=== PATIENT | male | born 1950 | race Caucasian/White ===

== ENCOUNTER → 2021-01-29 10:09 | Outpatient (CLI) | payer MEDICARE, SELFPAY ==
--- NOTE | ~2021-01-29 | XR_ITS ---
XR hip RT min 2V DATE: 01/29/2021 10:34 INDICATION: Right hip pain for 3 months. No injury. TECHNIQUE: AP and lateral views COMPARISON: None FINDINGS: There is joint space narrowing and prominent spurring consistent with severe right hip oste oarthritis. No fracture, dislocation or bone destruction is evident. IMPRESSION: Severe right hip osteoarthritis Reviewed, dictated and finalized at location A.
== END ==
PROVIDERS: PCP Internal Medicine; Visit Provider Nurse Practitioner
DX: M25.551 Pain in right hip (principal); M16.11 Unilateral primary osteoarthritis, right hip
CPT/HCPCS: 73502

== ENCOUNTER 2023-06-08 00:24 | Day surgery (SDC) | payer MEDICARE, SELFPAY ==
[2023-05-13 13:20] VITALS: BMI 29.5
[2023-06-08 10:29] VITALS: BP 158/85; PULSE 81; RESP 20; TEMP 36.5; O2SAT 99; BMI 29.7
[2023-06-08] MEDS: LACTATED RINGERS 1,000 ML 150 ML IV CONT (10:36)
[2023-06-08 10:37] LABS: Glucose Point of Care 109 mg/dl (65-105)
--- NOTE | 2023-06-08 11:06 | WPDANESEPPF ---
Anes - Initial Pre Proc Eval Procedure: Operation Date: 06/08/23 11:30 Proposed Procedures p Colonoscopy - Carlos De Leon MD Date/Time: 06/08/23 11:06 Surgeon: Carlos De Leon MD Pre Op Diagnosis: Family history of malignant neoplasm of digestive Patient Data Age: 72 Gender: M Height: 1.88 m Weight: 105.2 kg Last Vital Signs Temp 97.7 F 06/08/23 10:29 Pulse 81 06/08/23 10:29 Resp 20 06/08/23 10:29 BP 158/85 H 06/08/23 10:29 Pulse Ox 99 06/08/23 10:29 O2 Del Method Room Air 06/08/23 10:29 Allergies Allergy/AdvReac Type Severity Reaction Status Date / Time Penicillins Allergy Unknown feet Verified 06/08/23 10:22 swelling Home Medications Medication Instructions Recorded Confirmed Type multivitamin 1 tablet PO DAILY 02/19/21 05/13/23 History ezetimibe 10 mg tablet (Zetia) 10 mg PO DAILY #90 tabs 04/22/23 05/13/23 Rx alprazolam 0.25 mg tablet 0.25 mg PO TID PRN anxiety #90 tabs 04/28/23 05/13/23 Rx losartan 100 mg tablet 100 mg PO DAILY #90 tabs 04/28/23 05/13/23 Rx metformin 1,000 mg tablet 1,000 mg PO DAILY #90 tabs 04/28/23 05/13/23 Rx rosuvastatin 20 mg tablet (Crestor) 20 mg PO DAILY #90 tabs 04/28/23 05/13/23 Rx Laboratory Tests 06/08/23 10:35 POC Capillary Glucose 109 H mg/dl (65-105) Patient hx anesthesia problems: none Family hx anesthesia problems: none Results Review: All pre-operative results and documents have been reviewed as part of the pre-operative evaluation. [facility] Past Medical History Medical History COVID-19 Disorder of carbohydrate transport Hyperlipidemia Plantar fasciitis, bilateral Rheumatic fever Screening for malignant neoplasm Family History Family History Father Carcinoma of colon Mother Family history of lung cancer Social History Social History Smoking packs per day: 1 Smoking cigarettes per day: 20.0 Years smoked: 10 Smoking pack-years: 10.00 Smoking status: Former smoker Tobacco type: cigarettes Second hand tobacco smoke exposure: No Smoking end date: 04/26/89 Alcohol intake: current Drinks per week: 30 Substance use: never Substance use type: does not use Lack of Transportation: No Lack of Food: Never True Current Housing: I Have Housing Concerned About Future Housing: No Difficulty Paying Gas/Electric Bills: No Difficulty Paying for Meds: No Education: Associate Degree Difficulty w/ Childcare or Family Care: No Living arrangements: with family Gender identity (if verbalized by the patient): Male Spiritual care concerns: No Anes - Eval Final PreProcedure Day of Procedure 06/08/23 11:06 Patient weight: obese Heart: regular rate and rhythm Lungs: clear to auscultation Airway: Mallampati scale class II Neurological: alert and oriented Last oral intake: >/= 8 hours ASA classification: III Emergent: no Anesthetic plan: proceed Anesthesia type and monitoring: general GIVS and standard monitoring Results Review: All pre-operative results and documents have been reviewed as part of the pre-operative evaluation. Informed Consent: The patient's anesthetic plan and its attendant risks and benefits were discussed with the patient/family/POA. Questions were solicited and answers provided to the satisfaction of the patient/family/POA.
--- NOTE | 2023-06-08 11:28 | PM.HPGS ---
History of Present Illness History of Present Illness Consent: Risks, benefits, and alternatives have been discussed and questions answered. Patient agrees to proceed with procedure. Chief complaint: Family history of malignant neoplasm of digestive Narrative: Rodriguez Lawrence is a 72 year old male with last colonoscopy 2017, father had colon cancer Review of Systems Constitutional: Constitutional: Denies headache(s) and Denies weakness Eyes: Eyes: Denies blurry vision ENT: Reports Normal hearing present, Denies headache(s) and Denies neck pain Cardiovascular: Cardiovascular: Denies chest pain and Denies dyspnea Respiratory: Respiratory: Denies dyspnea Gastrointestinal: Gastrointestinal: Reports no additional gastrointestinal complaints Genitourinary: Genitourinary: Denies dysuria Musculoskeletal: Musculoskeletal: Denies neck pain Integumentary/Breasts: Skin/Breast: Denies dry skin Neurologic: Reports Normal hearing present, Denies headache(s) and Denies weakness Psychiatric: Psychiatric: Denies anxiety Endocrine: Endocrine: Denies change in body appearance Hematologic/Lymphatic: Hematologic/Lymphatic: Denies easy bleeding Allergic/Immunologic: Allergic/Immunologic: Denies urticaria PMFSH Past Medical History Medical History COVID-19 Disorder of carbohydrate transport Hyperlipidemia Plantar fasciitis, bilateral Rheumatic fever Screening for malignant neoplasm Family History Family History Father Carcinoma of colon Mother Family history of lung cancer Social History Social History Smoking packs per day: 1 Smoking cigarettes per day: 20.0 Years smoked: 10 Smoking pack-years: 10.00 Smoking status: Former smoker Tobacco type: cigarettes Second hand tobacco smoke exposure: No Smoking end date: 04/26/89 Alcohol intake: current Drinks per week: 30 Substance use: never Substance use type: does not use Lack of Transportation: No Lack of Food: Never True Current Housing: I Have Housing Concerned About Future Housing: No Difficulty Paying Gas/Electric Bills: No Difficulty Paying for Meds: No Education: Associate Degree Difficulty w/ Childcare or Family Care: No Living arrangements: with family Gender identity (if verbalized by the patient): Male Spiritual care concerns: No Meds Home Medications and Allergies Home Medications Medication Instructions Recorded Confirmed Type multivitamin 1 tablet PO DAILY 02/19/21 05/13/23 History ezetimibe 10 mg tablet (Zetia) 10 mg PO DAILY #90 tabs 04/22/23 05/13/23 Rx alprazolam 0.25 mg tablet 0.25 mg PO TID PRN anxiety #90 tabs 04/28/23 05/13/23 Rx losartan 100 mg tablet 100 mg PO DAILY #90 tabs 04/28/23 05/13/23 Rx metformin 1,000 mg tablet 1,000 mg PO DAILY #90 tabs 04/28/23 05/13/23 Rx rosuvastatin 20 mg tablet (Crestor) 20 mg PO DAILY #90 tabs 04/28/23 05/13/23 Rx Allergies Allergy/AdvReac Type Severity Reaction Status Date / Time Penicillins Allergy Unknown feet Verified 06/08/23 10:22 swelling Vital Signs Vital Signs - 24 hr 06/08/23 10:29 Temperature 97.7 F Pulse Rate 81 Respiratory Rate 20 Blood Pressure 158/85 H Pulse Oximetry 99 Oxygen Delivery Room Air Exam Const: General: comfortable and no acute distress HENMT: Face/Nose/Sinus: Normal nares present Eyes: General: appearance normal, both eyes and all related structures Neck: Neck: no JVD Resp: Auscultation: clear to auscultation bilaterally Cardio: Rate: regular rate Rhythm: regular rhythm GI: Inspection: non-distended GI Palp: Yes Soft to palpation Skin: General skin exam: normal color Neuro: General: gait normal Speech: normal speech Extrem: General: normal to inspection Psych: Mental Status: mental status grossly normal Assessmen
[2023-06-08 11:46] VITALS: BP 116/88; PULSE 82; RESP 16; O2SAT 98
[2023-06-08 11:56] VITALS: BP 137/79; PULSE 75; RESP 32; O2SAT 98
[2023-06-08 12:06] VITALS: BP 129/83; PULSE 66; RESP 17; O2SAT 100
== END 2023-06-08 12:17 | disposition home or self-care (01) ==
PROVIDERS: PCP Nurse Practitioner; Visit Provider Internal Medicine Gastroenterology
PROC: 0DJD8ZZ Inspection of Lower Intestinal Tract, Via Natural or Artificial Opening Endoscopic (ICD-10-PCS; CPT 45378; principal; 2023-06-08 11:30)
DX: Z12.11 Encounter for screening for malignant neoplasm of colon (principal); Z80.0 Family history of malignant neoplasm of digestive organs; E78.5 Hyperlipidemia, unspecified; Z79.84 Long term (current) use of oral hypoglycemic drugs; Z87.891 Personal history of nicotine dependence; E66.9 Obesity, unspecified; Z68.29 Body mass index [BMI] 29.0-29.9, adult
CPT/HCPCS: G0105; 82948; J2704; J7120